=== PATIENT | female | born 1965 | race Caucasian/White ===

== ENCOUNTER 2018-04-29 07:18 | Emergency (ER) | payer BC ==
[~2018-04-29] VITALS: Ht 154.9 cm; Wt 77.4 kg
[2018-04-29 07:20] VITALS: Ht 154.9 cm; Wt 77.4 kg
[2018-04-29] MEDS ORDERED: ONDANSETRON (ODT) 4 MG TAB ODT STA (07:34)
[2018-04-29] MEDS ORDERED: HYDROCODONE/APAP (5/325) TAB PO ONE (08:00)
[2018-04-29] MEDS ORDERED: HYDR-4011 PO (08:22)
[2018-04-29] MEDS ORDERED: NAPR-985 PO (08:22)
--- NOTE | 2018-04-29 09:23 | ERD ---
ER Documentation Chief Complaint Chief Complaint left knee pain, pain getting worse fell 3 wks ago HPI 52-year-old female presenting with left knee pain. Patient states that she fell 3 weeks ago had continued pain. Patient twisted her knee and excruciating pain occurred. Patient denies any other medical problems. She took ibuprofen 600 mg. No alleviation. NKDA. Surgical history denies. Surgical history denies ROS All systems reviewed and are negative except as per history of present illness. Medications Home Meds Active Scripts Naproxen* (Naprosyn*) 500 Mg Tablet, 500 MG PO BID PRN for PAIN AND/OR INFLAMMATION, #30 TAB Prov:MARY ANDERSON PA-C 04/29/18 Hydrocodone/Acetaminophen ([place] 5-325 Tablet) 1 Each Tablet, 1 TAB PO Q6H PRN for PAIN, #7 TAB Prov:MARY ANDERSON PA-C 04/29/18 Allergies Allergies: Coded Allergies: No Known Allergy (Unverified , 04/29/18) PMhx/Soc Medical and Surgical Hx: pt denies Medical Hx History of Surgery: Yes (Carpal tunnel sx) Anesthesia Reaction: No Hx Alcohol Use: No Hx Substance Use: No Hx Tobacco Use: Yes Smoking Status: Current every day smoker FmHx Family History: No diabetes, No coronary disease, No other Physical Exam Vitals Vital Signs Date Temp Pulse Resp B/P (MAP) Pulse Ox O2 O2 Flow FiO2 Time Delivery Rate 04/29/18 97.9 94 18 139/74 95 07:20 (95) Physical Exam GENERAL: The patient is well-appearing, well-nourished, in no acute distress CHEST: Clear to auscultation bilaterally. There are no rales, wheezes or rhonchi. HEART: Regular rate and rhythm. No murmurs, clicks, rubs or gallops. EXTREMITIES: Tender to palpation to lateral aspect of left knee. No valgus or varus deformity. His range of motion however elicits pain. No deformities. No swelling NEUROLOGIC: Motor strength in all 4 extremities with 5 out of 5 strength. Sensation grossly intact. Normal speech and gait. SKIN: There is no apparent rash or petechiae. The skin is warm and dry. Results 24 hrs Current Medications Medications Dose Sig/Laura Start Time Status Last (Trade) Ordered Route PRN Stop Time Admin Dose Reason Admin 1 tab ONCE ONCE 04/29/18 DC 04/29/18 Acetaminophen PO 08:00 07:42 / 04/29/18 08:01 Hydrocodone Bitart ([place] (5/325)) Ondansetron 4 mg ONCE STAT 04/29/18 DC 04/29/18 HCl (Zofran ODT 07:34 07:42 Odt) 04/29/18 07:36 Procedures/MDM DIAGNOSTIC IMAGING REPORT Patient: HONEY CABEZAS : 1965 Age: 52 Sex: F MR #: [id number] DOS: 04/29/18 0734 Ordering MD: JUMA ANDERSON PA-C Location: [facility] Room/Bed: PROCEDURE: Left knee x-ray CLINICAL INDICATION: Knee pain TECHNIQUE: AP, lateral and oblique views of the left knee were obtained. COMPARISON: None FINDINGS: No acute fracture or dislocation. No significant arthropathy for age or erosions. No joint effusion or focal soft tissue abnormality. No foreign body. IMPRESSION: No significant abnormality of the knee. ER Course: Knee clear applied to the ED. Neuro intact pre-and post splint application. Crutches given ED. MDM: 52-year-old female presenting with left knee pain. Patient likely has a strain or meniscus injury. She would benefit from an MRI. Patient is discharged with supportive medications and told to follow-up with orthopedist. Patient is told symptoms change or worsen to immediately return to ER. All questions answered at discharge Departure Diagnosis: Primary Impression: Knee pain Condition: Stable Patient Instructions: Knee Pain, Uncertain Cause Referrals: JACOB POSEY MD (PCP) Additional Instructions: FOLLOW UP WITH YOUR PRIMARY CARE PHYSICIAN TOMORROW.Return to this facility if you are not improving as expected. MARY ANDERSON PA-C Apr 29, 2018 09:23
== END 2018-04-29 08:31 | disposition home or self-care (01) ==
LOC: FTE 07:18
DX: M25.562 Pain in left knee (principal); F17.210 Nicotine dependence, cigarettes, uncomplicated
CPT/HCPCS: 29505; 73562; 99283; Z7610